=== PATIENT | male | born 1985 | race Caucasian/White ===

== ENCOUNTER 2023-09-07 00:22 | Day surgery (SDC) | payer BC, SELFPAY ==
[2023-08-24 09:58] VITALS: BMI 27.4
[2023-09-07 09:37] VITALS: BP 130/90; PULSE 71; RESP 16; TEMP 36.3; O2SAT 99; BMI 26.5
[2023-09-07] MEDS: LACTATED RINGERS 1,000 ML 150 ML IV CONT (09:44)
--- NOTE | 2023-09-07 10:05 | P.PNAN_ITS ---
Anes - Initial Pre Proc Eval Procedure: Operation Date: 09/07/23 15:30 Proposed Procedures p Flexible Sigmoidoscopy - Nacho Dumont MD Date/Time: 09/07/23 10:05 Surgeon: Nacho Dumont MD Pre Op Diagnosis: Other specified diseases of anus and rectum Patient Data Age: 38 Gender: M Height: 1.85 m Weight: 91.3 kg Last Vital Signs Temp 97.3 F L 09/07/23 09:37 Pulse 71 09/07/23 09:37 Resp 16 09/07/23 09:37 BP 130/90 09/07/23 09:37 Pulse Ox 99 09/07/23 09:37 O2 Del Method Room Air 09/07/23 09:37 Allergies Allergy/AdvReac Type Severity Reaction Status Date / Time nitroglycerin AdvReac Intermediate Fever Verified 09/07/23 09:33 Home Medications Medication Instructions Recorded Confirmed Type mupirocin 2 % topical ointment 1 applic topical BID #30 grams 05/30/23 09/07/23 Rx hydrocortisone acetate 25 mg 25 mg RECTAL BID 08/24/23 09/07/23 History rectal suppository Patient hx anesthesia problems: none Family hx anesthesia problems: none Results Review: All pre-operative results and documents have been reviewed as part of the pre- operative evaluation. FOR[facility]LY [facility], [facility] Past Medical History Medical History Overweight Family History Family History Mother Hypertension Father Family history of alcoholism Diabetes mellitus Social History Social History Smoking packs per day: 1 Smoking cigarettes per day: 20.0 Years smoked: 10 Smoking pack-years: 10.00 Smoking status: Former smoker Tobacco type: e-cigarettes/vaping Second hand tobacco smoke exposure: No Smoking end date: 02/28/17 Alcohol intake: current Drinks per week: 6 Alcohol use details: BEER Substance use: current Substance use type: marijuana Other substance usage details: DAILY Lack of Transportation: No Lack of Food: Never True Current Housing: I Have Housing Concerned About Future Housing: No Difficulty Paying Gas/Electric Bills: No Difficulty Paying for Meds: No Currently Unemployed: No Education: Master's Degree or Higher Difficulty w/ Childcare or Family Care: No Living arrangements: with family Gender identity (if verbalized by the patient): Male Sexual Orientation (if Verbalized by the Patient): Straight or Heterosexual Spiritual care concerns: No Agree to blood products: Yes Anes - Eval Final PreProcedure Day of Procedure 09/07/23 10:05 Patient weight: normal Heart: regular rate and rhythm Lungs: clear to auscultation Airway: Mallampati scale class II Neurological: alert and oriented Last oral intake: >/= 8 hours ASA classification: II Emergent: no Anesthetic plan: proceed Anesthesia type and monitoring: general GIVS and standard monitoring Results Review: All pre-operative results and documents have been reviewed as part of the pre- operative evaluation. Informed Consent: The patient's anesthetic plan and its attendant risks and benefits were discussed with the patient/family/POA. Questions were solicited and answers provided to the satisfaction of the patient/family/POA.
--- NOTE | 2023-09-07 10:13 | PM.HPGS ---
History of Present Illness History of Present Illness Consent: Risks, benefits, and alternatives have been discussed and questions answered. Patient agrees to proceed with procedure. Chief complaint: Other specified diseases of anus and rectum Narrative: Micah Irving is a 38 year old male with anal discomfort but now resolved, never had scopes. Review of Systems Review of Systems: All systems reviewed & are unremarkable except as noted in HPI and below PMFSH Past Medical History Medical History (Updated 09/07/23 @ 10:14 by Nacho Dumont MD) Anal pain Overweight Family History Family History Mother Hypertension Father Family history of alcoholism Diabetes mellitus Social History Social History Smoking packs per day: 1 Smoking cigarettes per day: 20.0 Years smoked: 10 Smoking pack-years: 10.00 Smoking status: Former smoker Tobacco type: e-cigarettes/vaping Second hand tobacco smoke exposure: No Smoking end date: 02/28/17 Alcohol intake: current Drinks per week: 6 Alcohol use details: BEER Substance use: current Substance use type: marijuana Other substance usage details: DAILY Lack of Transportation: No Lack of Food: Never True Current Housing: I Have Housing Concerned About Future Housing: No Difficulty Paying Gas/Electric Bills: No Difficulty Paying for Meds: No Currently Unemployed: No Education: Master's Degree or Higher Difficulty w/ Childcare or Family Care: No Living arrangements: with family Gender identity (if verbalized by the patient): Male Sexual Orientation (if Verbalized by the Patient): Straight or Heterosexual Spiritual care concerns: No Agree to blood products: Yes Meds Home Medications and Allergies Home Medications Medication Instructions Recorded Confirmed Type mupirocin 2 % topical ointment 1 applic topical BID #30 grams 05/30/23 09/07/23 Rx hydrocortisone acetate 25 mg 25 mg RECTAL BID 08/24/23 09/07/23 History rectal suppository Allergies Allergy/AdvReac Type Severity Reaction Status Date / Time nitroglycerin AdvReac Intermediate Fever Verified 09/07/23 09:33 Vital Signs Vital Signs - 24 hr 09/07/23 09:37 Temperature 97.3 F L Pulse Rate 71 Respiratory Rate 16 Blood Pressure 130/90 Pulse Oximetry 99 Oxygen Delivery Room Air Exam Const: General: comfortable and no acute distress HENMT: Face/Nose/Sinus: Normal nares present Eyes: General: appearance normal, both eyes and all related structures Neck: Neck: no JVD Resp: Auscultation: clear to auscultation bilaterally Cardio: Rate: regular rate Rhythm: regular rhythm GI: Inspection: non-distended GI Palp: Yes Soft to palpation Skin: General skin exam: normal color Neuro: General: gait normal Speech: normal speech Extrem: General: normal to inspection Psych: Mental Status: mental status grossly normal Assessment and Plan Assessment and plan (1) Anal pain: Code(s): K62.89 - Other specified diseases of anus and rectum Status: Acute Assessment and Plan: will check with sigmoidoscopy now resolved, wonder if had fissure
[2023-09-07 10:32] VITALS: BP 101/66; PULSE 70; RESP 21; O2SAT 100
[2023-09-07 10:42] VITALS: BP 114/82; PULSE 67; RESP 21; O2SAT 99
[2023-09-07 10:52] VITALS: BP 122/86; PULSE 61; RESP 13; O2SAT 100
== END 2023-09-07 11:01 | disposition home or self-care (01) ==
PROVIDERS: PCP Family Medicine; Visit Provider Internal Medicine Gastroenterology
PROC: 0DJD8ZZ Inspection of Lower Intestinal Tract, Via Natural or Artificial Opening Endoscopic (ICD-10-PCS; CPT 45330; principal; 2023-09-07 15:30)
DX: K64.8 Other hemorrhoids (principal); Z87.891 Personal history of nicotine dependence; F12.90 Cannabis use, unspecified, uncomplicated
CPT/HCPCS: 45378; J2704; J7120